=== PATIENT | female | born 1955 | race Caucasian/White ===

== ENCOUNTER 2017-12-14 17:47 | Emergency (ER) | payer OTHER ==
[~2017-12-14] VITALS: Ht 152.4 cm; Wt 44.5 kg
[~2017-12-14 17:47] MED LIST: ASACOL HD800 MG PO; ASACOL400 MG PO; CALCIUM 500 +1 EAC5 PO; CEPHALEXIN 500500 M2 PO; CHANTIX1 MG PO; DICLOFENAC SOD50 M1 PO; FLOMAX0.4 MG PO; HYDROCODON-ACE1 EAC7; HYDROCODON-ACE1 EAC7 PO; KEFLEX500 MG PO; MACROBID 100 M100 M1 PO; NORCO 5-325 TA1 EACH PO; OXYCODONE HCL15 MG PO; PRAVASTATIN SOD10 MG PO; ZOFRAN4 MG PO
[2017-12-14 18:38] LABS: HEMATOCRIT 38.4 % (37.0-47.0); HEMOGLOBIN 13.1 gm/dL (12.0-15.0); MCH 29.3 pg (26.0-34.0); MCHC 34.1 g/dL (28.0-37.0); MCV 85.9 fL (80.0-100.0); PLATELET COUNT 167 thou/uL (150-400); RBC 4.47 mil/uL (4.20-5.00); RDW 13.4 % (10.5-14.5); WBC 13.3 thou/uL (4.0-11.0)
[2017-12-14 18:50] LABS: CALCIUM 9.5 mg/dL (8.5-10.1); CREATININE 1.2 mg/dL (0.6-1.0); POTASSIUM 3.1 mmol/L (3.5-5.1)
[2017-12-14 18:55] LABS: ALBUMIN 3.6 g/dL (3.4-5.0); DIRECT BILIRUBIN 0.1 mg/dL (<0.1-0.3); TOTAL BILIRUBIN 0.6 mg/dL (<0.1-1.0); TOTAL PROTEIN 7.6 g/dL (6.4-8.2)
[2017-12-14 19:23] LABS: URINE BILIRUBIN NEGATIVE (Negative); URINE BLOOD NEGATIVE (Negative); URINE CLARITY CLEAR; URINE COLOR YELLOW; URINE GLUCOSE-RANDOM* NEGATIVE (Negative); URINE KETONES NEGATIVE (Negative); URINE NITRITE-REFLEX NEGATIVE (Negative); URINE PROTEIN (DIPSTICK) NEGATIVE (Negative); URINE UROBILINOGEN 0.2 E.U./dl (0.2-1.0)
[2017-12-14 19:24] LABS: URINE LEUKOCYTES-REFLEX TRACE (Negative)
[2017-12-14 19:39] LABS: ABSOLUTE NEUTROPHILS 12.4 thou/uL (1.4-8.2)
[2017-12-14] MEDS ORDERED: ZOFRAN ODT4 MG PO (20:42)
[2017-12-14 21:14] VITALS: BP 129/60
[2017-12-16] MEDS ORDERED: APRISO0.375 GM PO (10:45)
== END 2017-12-14 21:15 | disposition home or self-care (01) ==
LOC: ER 17:47
PROVIDERS: Emergency Medicine
DX: R50.9 Fever, unspecified (principal); M54.5 Low back pain; R42 Dizziness and giddiness; R00.0 Tachycardia, unspecified; R07.9 Chest pain, unspecified; R10.9 Unspecified abdominal pain; N89.8 Other specified noninflammatory disorders of vagina; F17.210 Nicotine dependence, cigarettes, uncomplicated; E78.00 Pure hypercholesterolemia, unspecified; Z90.49 Acquired absence of other specified parts of digestive tract

== ENCOUNTER → 2018-02-15 | Outpatient (CLI) | payer OTHER ==
[~2018-02-15] MED LIST changes: +APRISO0.375 GM PO; +CEFTRIAXONE2 G1 IVPB; +NORCO 10-325 T1 EACH PO; +ZOFRAN ODT4 MG PO
== END ==
LOC: MRI 09:34
DX: M51.27 Other intervertebral disc displacement, lumbosacral region (principal); M51.37 Other intervertebral disc degeneration, lumbosacral region; M48.061 Spinal stenosis, lumbar region without neurogenic claudication; A40.9 Streptococcal sepsis, unspecified; R60.9 Edema, unspecified; R78.81 Bacteremia

== ENCOUNTER 2020-12-13 11:02 | Day surgery (SDC) | payer OTHER ==
[~2020-12-13] VITALS: Ht 157.5 cm; Wt 42.6 kg
[~2020-12-13 11:02] MED LIST changes: +MESALAMINE800 MG PO; +MULTI VITAMIN1 EACH PO; +VITAMIN C1000 MG PO; +VITAMIN D325 MC2 PO; +VITAMIN E1000 UNIT PO
[2020-12-13 12:00] VITALS: BP 137/92
[2020-12-13 12:37] LABS: HEMATOCRIT 37.5 % (37.0-47.0); HEMOGLOBIN 12.3 gm/dL (12.0-15.0)
[2020-12-13] MEDS ORDERED: HYDROCODON-ACE1 EAC7 PO (14:58)
[2020-12-13 15:12] VITALS: BP 137/92
--- NOTE | 2020-12-17 12:01 | O ---
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 PROCEDURE PERFORMED: Excision right breast mass. ANESTHESIA: General. COMPLICATIONS: None. BLOOD LOSS: 5 mL. DESCRIPTION OF PROCEDURE: The nodule is identified on preoperative ultrasound. This was marked. The patient does not have much of areolar and a curvilinear incision was made at the border of this very faint areolar. The incision was about 2 to 2.5 cm. After incising through the skin and subcutaneous tissue, the skin of the areolar nipple was lifted off the breast tissue. Initially, I tried to cannulate the duct at the nipple, which was centrally located. I could not even get the smallest wire in. After I lifted the skin up, I was able to then finally probe it and get the probe in the milk duct. When I was dissecting, I did not encounter the abnormal duct yet, but when I finally was able to get the probe in, the probe was just deep to where I was dissecting and the duct was then identified this way. The duct was then freed from the overlying nipple. The proximal duct was then grasped, the breast tissue was then dissected free in a cylindrical fashion. The breast tissue was lifted up and once I got about 1.5 cm from the proximal duct, I could feel a nodule present in the breast tissue. This was about 6 mm which is what the ultimate preoperative ultrasound showed. This was likely the papilloma, which did feel like it was adjacent to the wire probe. I did dissect out another centimeter distal to this into the breast tissue. Specimen was oriented for pathologist with a suture at the proximal duct, where it was freed from the nipple and then right over where the nodule was located. Hemostasis was obtained. Irrigation was performed. Subcutaneous tissue was closed with 4-0 PDS. Skin was closed with 5-0 PDS [address] [address] OPERATIVE REPORT Name: AUGUSTUS DALE Room #: DEP [facility].#: [id number] Admission: 12/13/20 Attend Phys: Marcos Cortes MD Discharge: 12/13/20 Date of : 59 Report #: [id number] subcuticular fashion. Dermabond was used. A 4 x 4, Op-Site was used for dressing. The patient tolerated the procedure well. <ELECTRONICALLY SIGNED> By: Marcos Cortes MD 12/17/20 1201 [id number] [id number] Marcos Cortes MD /nt
--- NOTE | 2020-12-17 15:08 | PATH ---
[facility] [address] [place] [address] PATHOLOGY RPT PROCEDURE Name: AUGUSTUS DALE Room #: DEP [facility] [place] M.R.#: [id number] Admission: 12/13/20 Date of : 59 Discharge: 12/13/20 Report #: [id number] Path Case #: [id number] [facility] Accession Number: [id number] . 01 Material submitted: . breast - RIGHT BREAST MASS. Modifiers: right . 01 Clinical history: . LONG STITCH MARKING PAPILLOMA SHORT STITCH- SUB PROXIMAL MILK DUCT . 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 (BRANDAN:dusty; 12/16/2020) [facility]BR 12/16/2020 1358 Local . 02 Comment: There is no atypia or evidence of malignancy. (BRANDAN:dusty; 12/16/2020) . 02 Electronically signed: . Nolan Win MD, Pathologist NPI- [id number] . 01 Gross description: . Fixative: Formalin Labeled: Right breast mass long stitch- marking papilloma, short stitch- sub proximal milk duct Specimen received: Irregular portion of lemos-yellow fibroadipose tissue Oriented: A short suture is present on one aspect (marking sub proximal milk duct) and a long suture is present on a second aspect (marking papilloma). Dimensions: 4.5 x 2.5 x 0.7 cm Weight: 1 g The specimen is inked as follows: Aspect with long suture-red Aspect opposite long suture-blue Aspect with short suture-green Aspect opposite short suture-black Remaining two aspects-orange The specimen is sectioned from the short suture toward the opposite aspect. Number of slices: 12 Lesion: 2.6 x 0.8 x 0.5 cm lemos-white friable possible lesion Lesion location: Slices 3-8 Lesion to margins: [place] [address] PATHOLOGY RPT PROCEDURE Name: AUGUSTUS DALE Room #: DEP [facility]#: [id number] Admission: 12/13/20 Date of : 59 Discharge: 12/13/20 Report #: [id number] Path Case #: [id number] Less than 0.1 cm to red Less than 0.1 cm to blue 0.6 cm to green 1.7 cm to black Less than 0.1 cm to orange Biopsy clip: No Uninvolved breast parenchyma: Lemos-white and fibrous . The specimen is submitted as follows: A1 slice 1, green margin, bisected A2 slices 2-4 A3 slices 5-7 A4 slices 8-9 A5 slices 10-11 A6 slice 12, black margin, bisected . The specimen is removed from the patient at 1448 and placed in formalin at an unspecified time on 12/13/2020. The specimen is removed from formalin at 1650 on 12/14/2020. The specimen is in formalin for greater than 6 hours and less than 72 hours. ([facility] [place]; 12/14/2020) [facility] 12/14/2020 0831 Local . 02 Pathologist provided ICD-10: N60.41, N60.31, D24.1 . 02 CPT . 543589 Specimen Comment: A courtesy copy of this report has been sent to [phone] Specimen Comment: [id number] Specimen Comment: Report sent to / DR PHILLIPS Specimen Comment: A duplicate report has been generated due to demographic updates. Performed at: 01 [facility] [address], [place] [id number] MD Damián Salazar MD Phone: [phone] Performed at: 02 [facility] [address], [place] [id number] MD Nolan Win MD Phone: [phone]
== END 2020-12-13 15:47 | disposition home or self-care (01) ==
LOC: OR 11:02 → TBA 11:05 → OR 13:50
PROVIDERS: ATTEND Surgery
DX: D24.1 Benign neoplasm of right breast (principal); N60.41 Mammary duct ectasia of right breast; N60.31 Fibrosclerosis of right breast; E78.00 Pure hypercholesterolemia, unspecified; N18.9 Chronic kidney disease, unspecified; F17.210 Nicotine dependence, cigarettes, uncomplicated; Z98.890 Other specified postprocedural states; Z79.899 Other long term (current) drug therapy; Z87.442 Personal history of urinary calculi; Z20.822 Contact with and (suspected) exposure to COVID-19
CPT/HCPCS: 50010; 50101; 50386; 50403; 54118; 56525; 56526; 62110; 62900; 70005